=== PATIENT | male | born 1935 | race Native Hawaiian/Other Pacific Islander ===

== ENCOUNTER 2017-01-23 10:12 | Outpatient (CLI) | payer OTHER | END 2017-01-23 19:13 | disposition home or self-care (01) | LOC: CT 10:12 | DX: R91.1 Solitary pulmonary nodule (principal) ==

== ENCOUNTER 2017-09-10 10:49 | Day surgery (SDC) | payer OTHER ==
[~2017-09-10] VITALS: Ht 30.5 cm; Wt 0.5 kg
== END 2017-09-10 13:30 | disposition home or self-care (01) ==
LOC: OR 10:49
PROC: 08RJ3JZ Replacement of Right Lens with Synthetic Substitute, Percutaneous Approach (ICD-10-PCS; principal; 2017-09-10)
DX: H25.811 Combined forms of age-related cataract, right eye (principal)
CPT/HCPCS: 66984; V2632

== ENCOUNTER 2017-09-24 14:08 | Outpatient (CLI) | payer OTHER | END 2017-09-24 15:10 | disposition home or self-care (01) | LOC: CT 14:08 | DX: R91.1 Solitary pulmonary nodule (principal) ==